=== PATIENT | female | born 1990 | race Caucasian/White ===

== ENCOUNTER 2021-05-10 14:43 | Inpatient (IN) ==
[2021-05-10 17:40] LABS: Basophils % 0.6 % (0.0-0.8); Eosinophils # 0.1 10*3/uL (0.0-0.87); Eosinophils % 2.1 % (0.00-10.9); Hematocrit 40.9 VOL% (35.7-47.0); Hemoglobin 12.1 GM/DL (12.0-16.0); Immature Granulocytes % 0.3 %; Immature Granulocytes Absolute 0.02 #; Lymphocytes # 1.6 10*3/uL (1.4-4.0); Lymphocytes % 24.6 % (21.3-54.2); Mean Corpuscular HGB Conc 29.6 GM/DL (32-36); Mean Corpuscular Volume 88.9 FL (87-102); Mean Platelet Volume 12.4 FL (9.6-12.0); Monocytes % 9.8 % (1.7-12.7); Neutrophils % 62.6 % (38.7-73.9); Platelet Count 177 T/CUMM (130-400); White Blood Count 6.6 T/CUMM (4-12)
[2021-05-10 17:43] LABS: Bacteria,Urine Few /HPF (Few); Bilirubin,Urine Negative (Negative); Blood, Urine Moderate mg/dL (Negative); Glucose,Urine (UA) Negative (Negative); Ketones,Urine Negative (Negative); Mucus,Urine Occasional /LPF (Occasional); Nitrite,Urine Negative (Negative); Protein,Urine Negative; RBC,Urine 2 /HPF (0-4); Squamous Epithelial Cell,Urine Occasional /HPF (0-10); Urine Appearance CLEAR (Clear); Urine Color Straw (Yellow); Urine Specific Gravity 1.008 (1.001-1.035); Urine Urobilinogen < 2.0 EU/DL (0.2-1.0)
[2021-05-10 17:57] LABS: Alanine Aminotransferase 19 U/L (13-56); Alkaline Phosphatase 82 U/L (45-117); Aspartate Amino Transferase 14 U/L (0-37); Bilirubin,Total < 0.39 MG/DL (0.20-1.00); Blood Urea Nitrogen 8 MG/DL (7-18); Calcium 8.6 MG/DL (8.5-10.1); Carbon Dioxide 24 MMOL/L (21-32); Estimated Glom Filtration Rate 131 ML/MIN; Glucose 87 MG/DL (74-106); Osmolality,Calculated 277.3 MOS/KG (273-304); Potassium 3.8 MMOL/L (3.5-5.1); Sodium 141 MMOL/L (136-145); Total Protein 7.2 G/DL (6.4-8.2)
[2021-05-10] MEDS ORDERED: MORPHINE 2 MG/1 ML SYRINGE IV STA (18:06)
[2021-05-10] MEDS ORDERED: ONDANSETRON 4 MG/2 ML VIAL IV STA (18:06)
[2021-05-10] MEDS ORDERED: MORPHINE 4 MG/1 ML VIAL IV STA (18:10)
[2021-05-10] MEDS ORDERED: MORPHINE 2 MG/1 ML SYRINGE ONE (18:20)
[2021-05-10] MEDS ORDERED: LACTATED RINGERS 1,000 ML IV ONE ×2 (19:21→22:12)
[2021-05-10] MEDS ORDERED: PIPERACILLIN/TAZOBACTAM 3,375 MG in SODIUM CHLORIDE 0.9% 100 ML IV STA (20:11)
[2021-05-10] MEDS ORDERED: SUCCINYLCHOLINE 200 MG/10 ML VIAL ONE (20:52)
[2021-05-10] MEDS ORDERED: ROCURONIUM 50 MG/5 ML VIAL IV ONE (20:52)
[2021-05-10] MEDS ORDERED: fentaNYL 100 MCG/2 ML VIAL ONE (20:52)
[2021-05-10] MEDS ORDERED: DEXAMETHASONE 4 MG/1 ML VIAL ONE (20:52)
[2021-05-10] MEDS ORDERED: propofoL 200 MG/20 ML VIAL IV ONE (20:52)
[2021-05-10] MEDS ORDERED: ONDANSETRON 4 MG/2 ML VIAL ONE (20:52)
[2021-05-10] MEDS ORDERED: KETAMINE 500 MG/10 ML VIAL ONE (20:52)
[2021-05-10] MEDS ORDERED: LIDOCAINE 2% 5 ML VIAL ONE (20:52)
[2021-05-10] MEDS ORDERED: KETOROLAC 30 MG/1 ML VIAL ONE (22:11)
[2021-05-10] MEDS ORDERED: SEVOFLURANE 1 UNIT/15 MINUTE INH ONE ×3 (22:11→22:18)
[2021-05-10] MEDS ORDERED: DESFLURANE 1 UNIT/15 MINUTE INH ONE (22:18)
[2021-05-10] MEDS ORDERED: NEOSTIGMINE 10 MG/10 ML VIAL ONE (22:21)
[2021-05-10] MEDS ORDERED: GLYCOPYRROLATE 0.4 MG/2 ML VIAL ONE (22:21)
[2021-05-10] MEDS ORDERED: MORPHINE 2 MG/1 ML SYRINGE IV PRN (22:31)
[2021-05-10] MEDS ORDERED: ONDANSETRON 4 MG/2 ML VIAL IV PRN ×2 (22:31→22:54)
[2021-05-10] MEDS ORDERED: KETOROLAC 15 MG/1 ML VIAL IV PRN (22:31)
[2021-05-10] MEDS ORDERED: ACETAMINOPHEN 325 MG TABLET PO PRN (22:31)
[2021-05-10] MEDS: HYDROmorphone 2 MG/1 ML VIAL IV PRN ×4 (22:55→23:14)
[2021-05-10] MEDS: LACTATED RINGERS 1,000 ML IV SCH (23:20)
[2021-05-11] MEDS: PIPERACILLIN/TAZOBACTAM 3,375 MG in SODIUM CHLORIDE 0.9% 100 ML IV SCH ×3 (05:05→19:52)
[2021-05-11 05:59] LABS: Basophils % 0.2 % (0.0-0.8); Hematocrit 32.8 VOL% (35.7-47.0); Hemoglobin 10.5 GM/DL (12.0-16.0); Immature Granulocytes Absolute 0.11 #; Lymphocytes # 0.4 10*3/uL (1.4-4.0); Lymphocytes % 3.8 % (21.3-54.2); Mean Corpuscular Volume 86.1 FL (87-102); Mean Platelet Volume 12.2 FL (9.6-12.0); Monocytes % 8.2 % (1.7-12.7); Neutrophils % 86.8 % (38.7-73.9); Platelet Count 129 T/CUMM (130-400); Red Blood Count 3.81 MC/CUMM (3.8-5.5); Red Cell Distribution Width 13.8 % (9.3-17.3); White Blood Count 11.1 T/CUMM (4-12)
[2021-05-11 06:18] LABS: Calcium 8.4 MG/DL (8.5-10.1); Osmolality,Calculated 277.5 MOS/KG (273-304); Potassium 3.8 MMOL/L (3.5-5.1)
[2021-05-11 06:26] LABS: Band Neutrophils 5 % (0-10); Lymphocytes 4 % (20-55); Segmented Neutrophils 87 % (50-85); Total Cells Counted 100
[2021-05-11 06:27] LABS: Hypochromasia 1+; Microcytosis 1+
[2021-05-11 06:28] LABS: Platelet Estimate Adequate
[2021-05-11] MEDS ORDERED: PANTOPRAZOLE 40 MG TABLET PO SCH (09:00)
[2021-05-11] MEDS: LACTATED RINGERS 1,000 ML IV SCH ×3 (09:04→23:29)
[2021-05-11] MEDS ORDERED: HYDROmorphone 2 MG/1 ML VIAL IV PRN ×2 (09:45)
[2021-05-11] MEDS ORDERED: ONDANSETRON 4 MG/2 ML VIAL IV PRN (09:46)
[2021-05-11] MEDS: KETOROLAC 15 MG/1 ML VIAL IV SCH ×3 (09:58→22:05)
[2021-05-11] MEDS ORDERED: SIMETHICONE CHEW 125 MG TABLET PO PRN (12:55)
[2021-05-11] MEDS: PANTOPRAZOLE 40 MG VIAL IV SCH (13:22)
[2021-05-12] MEDS: KETOROLAC 15 MG/1 ML VIAL IV SCH ×5 (04:09→22:04)
[2021-05-12] MEDS: PIPERACILLIN/TAZOBACTAM 3,375 MG in SODIUM CHLORIDE 0.9% 100 ML IV SCH ×3 (04:11→20:25)
[2021-05-12] MEDS: PANTOPRAZOLE 40 MG VIAL IV SCH (08:53)
[2021-05-12] MEDS: LACTATED RINGERS 1,000 ML IV SCH ×2 (14:34→16:10)
[2021-05-13] MEDS: LACTATED RINGERS 1,000 ML IV SCH ×2 (04:33→18:38)
[2021-05-13] MEDS: PIPERACILLIN/TAZOBACTAM 3,375 MG in SODIUM CHLORIDE 0.9% 100 ML IV SCH (04:33)
[2021-05-13] MEDS: KETOROLAC 15 MG/1 ML VIAL IV SCH ×4 (04:37→22:22)
[2021-05-13 05:59] LABS: Basophils % 0.6 % (0.0-0.8); Eosinophils # 0.1 10*3/uL (0.0-0.87); Eosinophils % 2.1 % (0.00-10.9); Hematocrit 27.3 VOL% (35.7-47.0); Hemoglobin 8.6 GM/DL (12.0-16.0); Immature Granulocytes % 0.4 %; Immature Granulocytes Absolute 0.02 #; Lymphocytes # 1.2 10*3/uL (1.4-4.0); Lymphocytes % 24.7 % (21.3-54.2); Mean Corpuscular HGB Conc 31.5 GM/DL (32-36); Mean Corpuscular Volume 86.4 FL (87-102); Mean Platelet Volume 12.7 FL (9.6-12.0); Monocytes % 9.7 % (1.7-12.7); Neutrophils % 62.5 % (38.7-73.9); Platelet Count 102 T/CUMM (130-400); Red Blood Count 3.16 MC/CUMM (3.8-5.5); Red Cell Distribution Width 13.9 % (9.3-17.3); White Blood Count 4.7 T/CUMM (4-12)
[2021-05-13 06:24] LABS: Calcium 8.3 MG/DL (8.5-10.1); Osmolality,Calculated 277.3 MOS/KG (273-304); Potassium 3.2 MMOL/L (3.5-5.1)
[2021-05-13] MEDS ORDERED: POTASSIUM CHLORIDE 20 MEQ TABLET PO ONE (08:59)
[2021-05-13] MEDS: PANTOPRAZOLE 40 MG VIAL IV SCH (09:12)
[2021-05-14] MEDS: KETOROLAC 15 MG/1 ML VIAL IV SCH ×4 (03:59→22:41)
[2021-05-14 04:58] LABS: Basophils % 0.4 % (0.0-0.8); Eosinophils # 0.2 10*3/uL (0.0-0.87); Eosinophils % 3.5 % (0.00-10.9); Hemoglobin 8.9 GM/DL (12.0-16.0); Immature Granulocytes % 0.4 %; Immature Granulocytes Absolute 0.02 #; Lymphocytes # 0.9 10*3/uL (1.4-4.0); Lymphocytes % 18.8 % (21.3-54.2); Mean Corpuscular HGB Conc 31.8 GM/DL (32-36); Mean Corpuscular Volume 84.6 FL (87-102); Mean Platelet Volume 12.5 FL (9.6-12.0); Monocytes % 9.7 % (1.7-12.7); Neutrophils % 67.2 % (38.7-73.9); Platelet Count 128 T/CUMM (130-400); Red Blood Count 3.31 MC/CUMM (3.8-5.5); Red Cell Distribution Width 13.6 % (9.3-17.3); White Blood Count 4.6 T/CUMM (4-12)
[2021-05-14 05:34] LABS: Calcium 8.1 MG/DL (8.5-10.1); Potassium 3.2 MMOL/L (3.5-5.1)
[2021-05-14] MEDS: PANTOPRAZOLE 40 MG VIAL IV SCH (09:18)
[2021-05-14] MEDS ORDERED: POTASSIUM CHLORIDE 20 MEQ TABLET PO ONE (14:00)
[2021-05-15] MEDS: KETOROLAC 15 MG/1 ML VIAL IV SCH ×2 (03:51→09:00)
[2021-05-15] MEDS: PANTOPRAZOLE 40 MG VIAL IV SCH (09:00)
[2021-05-15 11:13] VITALS: BP 111/77
== END 2021-05-15 11:50 | disposition home or self-care (01) | DRG 331 ==
LOC: N.ED 14:43 → N.EDINP 21:21 → N.3E 23:15
PROVIDERS: ADMIT Surgery; ATTEND Surgery